=== PATIENT | female | born 1990 | race Caucasian/White ===

== ENCOUNTER 2020-02-26 14:39 | Emergency (ER) | payer BC ==
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
[2020-02-26 15:40] VITALS: BP 170/101; PULSE 91; O2SAT 98
--- NOTE | 2020-02-26 16:16 | XRAY ---
Indication: . History of miscarriage. Two-dimensional transabdominal early OB ultrasound performed. Comparison: None There is a single viable intrauterine with heart rate 150 BPM. Composite mean gestational age is 15 weeks 0 days. Anterior placenta without abruption/previa. Impression: Single viable intrauterine measuring 15 weeks 0 days. Expected date of confinement is August 19, 2020. Nothing acute.
== END 2020-02-26 15:51 | disposition home or self-care (01) ==
LOC: ED 14:39
DX: O26.892 Other specified pregnancy related conditions, second trimester (principal); O99.342 Other mental disorders complicating pregnancy, second trimester; Z3A.14 14 weeks gestation of pregnancy; F41.9 Anxiety disorder, unspecified
CPT/HCPCS: 76801; 99283

== ENCOUNTER 2020-06-12 19:13 | Emergency (ER) | payer BC ==
[2020-06-12] MEDS ORDERED: Sodium Chloride 0.9% 1000 ML 1,000 ML IV SCH (19:30)
[2020-06-12 19:31] VITALS: O2SAT 98
[2020-06-12] MEDS ORDERED: Sodium Chloride 0.9% 1000 ML 1,000 ML ONE (19:41)
--- NOTE | 2020-06-12 19:53 | ERPHSYRPT ---
- History of Present Illness Time Seen by Provider: 06/12/20 19:40 Source: patient Exam Limitations: no limitations Physician History: This is a 30-year-old white female who is 29 weeks . She is a patient of Dr. Cruz has symptoms of headache and intermittent dizziness that began yesterday. She has not had any vomiting. She has been having intermittent cramping but is not different than usual. She has had no vaginal bleeding. She has no chest pain. She is not short of breath. She has no history of preeclampsia. She also has no history of hypertension. She has not had any visual changes or disturbances. Timing/Duration: yesterday Severity: mild Associated Symptoms: headaches Allergies/Adverse Reactions: Penicillins Allergy (Severe, Verified 06/12/20 20:06) Difficulty Breathing Home Medications: Vits W-Ca,Fe,FA(<1Mg) [] 1 tab PO DAILY 06/12/20 [History] Hx Tetanus, Diphtheria Vaccination/Date Given: No Hx Influenza Vaccination/Date Given: No Hx Pneumococcal Vaccination/Date Given: No Travel Risk - International Travel Have you traveled outside of the country in past 3 weeks: No - Coronavirus Screening Are you exhibiting any of the following symptoms?: No Close contact with a COVID-19 positive Pt in past 14-21 Days: No - Review of Systems Constitutional: No Symptoms Eyes: No Symptoms Ears, Nose, & Throat: No Symptoms Respiratory: No Symptoms Cardiac: No Symptoms Abdominal/Gastrointestinal: No Symptoms Genitourinary Symptoms: No Symptoms Musculoskeletal: No Symptoms Skin: No Symptoms Neurological: Dizziness, Headache Psychological: No Symptoms Endocrine: No Symptoms Hematologic/Lymphatic: No Symptoms Immunological/Allergic: No Symptoms All Other Systems: Reviewed and Negative - Past Medical History Pertinent Past Medical History: No Neurological History: No Pertinent History ENT History: No Pertinent History Cardiac History: No Pertinent History Respiratory History: No Pertinent History Endocrine Medical History: No Pertinent History Musculoskeletal History: No Pertinent History GI Medical History: No Pertinent History History: No Pertinent History Psycho-Social History: No Pertinent History Female Reproductive Disorders: No Pertinent History - Past Surgical History Past Surgical History: Yes Neuro Surgical History: No Pertinent History Cardiac: No Pertinent History Respiratory: No Pertinent History Gastrointestinal: No Pertinent History Genitourinary: No Pertinent History Musculoskeletal: No Pertinent History Female Surgical History: No Pertinent History - Social History Smoking Status: Current every day smoker How long have you smoked: 10 YRS. Exposure to second hand smoke: No Drug Use: none Patient Lives Alone: No - Nursing Vital Signs Nursing Vital Signs: Initial Vital Signs Temperature 98.2 F 06/12/20 19:26 Pulse Rate 108 H 06/12/20 19:26 Respiratory Rate 18 06/12/20 19:26 Blood Pressure 177/99 06/12/20 19:26 O2 Sat by Pulse Oximetry 98 06/12/20 19:26 Pain Scale Pain Intensity 10 - Physical Exam General Appearance: no apparent distress, alert, anxiety Eye Exam: PERRL/EOMI, eyes nml inspection Ears, Nose, Throat Exam: normal ENT inspection, moist mucous membranes Neck Exam: normal inspection, non-tender, supple, full range of motion Respiratory Exam: normal breath sounds, lungs clear, airway intact, No chest tenderness, No respiratory distress Cardiovascular Exam: tachycardia Gastrointestinal/Abdomen Exam: soft, normal bowel sounds, No tenderness Pelvic Exam: not done Rectal Exam: not done Back Exam: normal inspection, normal range of motion, No CVA tenderness, No vertebral tenderness Extremity Exam: normal inspection, normal range of motion, pelvis stable Lymphatic Exam: No adenopathy SpO2 Interpretation: normal SpO2: 98 O2 Delivery: Room Air - Course Nursing assessment & vital signs reviewed: Yes EKG Interpreted by Me: RATE (97), Sinus Rhythm, NORMAL AXIS, NORMAL INTERVALS, NORMAL QRS, NORMAL ST-T, Other (No acute ischemic changes on EKG) Ordered Tests: Active Orders 24 hr Category Date Time Status IV Insertion STAT Care 06/12/20 19:28 Active CBC W DIFF Stat Lab 06/12/20 19:55 Completed CMP Stat Lab 06/12/20 19:55 Completed Lactic Acid Stat Lab 06/12/20 19:50 Completed MAG [MAGNESIUM] Stat Lab 06/12/20 19:55 Completed Manual Differential NC Stat Lab 06/12/20 19:55 Completed POCT GLUCOSE Stat Lab 06/12/20 19:27 Completed UA W/RFX UR CULTURE Stat Lab 06/12/20 19:29 Completed Medication Summary Generic Name Dose Route Start Last Admin Trade Name Freq PRN Reason Stop Dose Admin Sodium Chloride 1,000 mls @ 50 mls/hr 06/12/20 19:30 06/12/20 19:42 Sodium Chloride 0.9% 1000 Ml IV 07/12/20 19:29 50 mls/hr .Q20H PANCHO Administration Lab/Rad Data: Laboratory Result Diagrams 06/12/20 19:55 06/12/20 19:55 Laboratory Results 06/12/20 06/12/20 06/12/20 Range/Units 19:55 19:55 19:55 WBC 15.0 H (4.0-10.5) K/mm3 RBC 3.51 L (4.1-5.4) M/mm3 Hgb 10.8 L (12.0-16.0) gm/dl Hct 33.6 L (35-47) % MCV 95.7 (78-100) fl MCH 30.8 (26-32) pg MCHC 32.1 (32-36) g/dl RDW 12.9 (11.5-14.0) % Plt Count 274 (150-450) K/mm3 MPV 10.3 (7.5-11.0) fl Sodium 130 L (137-145) mmol/L Potassium 3.7 (3.5-5.1) mmol/L Chloride 104 (98-107) mmol/L Carbon Dioxide 20 L (22-30) mmol/L Anion Gap 9.6 (5-15) MEQ/L BUN 4 L (7-17) mg/dL Creatinine 0.47 L (0.52-1.04) mg/dL Estimated GFR > 60.0 ML/MIN Glucose 81 (74-106) mg/dL POC Glucometer (74 to 106) mg/dL Lactic Acid (0.4-2.0) Calcium 9.5 (8.4-10.2) mg/dL Magnesium 1.6 (1.6-2.3) mg/dL Total Bilirubin 0.20 (0.2-1.3) mg/dL AST 16 (14-36) U/L ALT 9 (0-35) U/L Alkaline Phosphatase 102 (38-126) U/L Serum Total Protein 7.0 (6.3-8.2) g/dL Albumin 3.7 (3.5-5.0) g/dL Urine Color (YELLOW) Urine Appearance (CLEAR) Urine pH (5-6) Ur Specific [place] (1.005-1.025) Urine Protein (Negative) Urine Ketones (NEGATIVE) Urine Blood (0-5) Adria/ul Urine Nitrite (NEGATIVE) Urine Bilirubin (NEGATIVE) Urine Urobilinogen (0-1) mg/dL Ur Leukocyte Esterase (NEGATIVE) Urine WBC (Auto) (0-5) /HPF Urine RBC (Auto) (0-2) /HPF U Epithel Cells (Auto) (FEW) /HPF Urine Bacteria (Auto) (NEGATIVE) /HPF Urine Mucus (Auto) (NEGATIVE) /HPF Urine Culture Reflexed (NO) Urine Glucose (NEGATIVE) mg/dL 06/12/20 06/12/20 06/12/20 Range/Units 19:50 19:29 19:27 WBC (4.0-10.5) K/mm3 RBC (4.1-5.4) M/mm3 Hgb (12.0-16.0) gm/dl Hct (35-47) % MCV (78-100) fl MCH (26-32) pg MCHC (32-36) g/dl RDW (11.5-14.0) % Plt Count (150-450) K/mm3 MPV (7.5-11.0) fl Sodium (137-145) mmol/L Potassium (3.5-5.1) mmol/L Chloride (98-107) mmol/L Carbon Dioxide (22-30) mmol/L Anion Gap (5-15) MEQ/L BUN (7-17) mg/dL Creatinine (0.52-1.04) mg/dL Estimated GFR ML/MIN Glucose (74-106) mg/dL POC Glucometer 75 (74 to 106) mg/dL Lactic Acid 0.9 (0.4-2.0) Calcium (8.4-10.2) mg/dL Magnesium (1.6-2.3) mg/dL Total Bilirubin (0.2-1.3) mg/dL AST (14-36) U/L ALT (0-35) U/L Alkaline Phosphatase (38-126) U/L Serum Total Protein (6.3-8.2) g/dL Albumin (3.5-5.0) g/dL Urine Color YELLOW (YELLOW) Urine Appearance CLEAR (CLEAR) Urine pH 6.0 (5-6) Ur Specific [place] 1.015 (1.005-1.025) Urine Protein NEGATIVE (Negative) Urine Ketones TRACE (NEGATIVE) Urine Blood NEGATIVE (0-5) Adria/ul Urine Nitrite NEGATIVE (NEGATIVE) Urine Bilirubin NEGATIVE (NEGATIVE) Urine Urobilinogen NEGATIVE (0-1) mg/dL Ur Leukocyte Esterase NEGATIVE (NEGATIVE) Urine WBC (Auto) 0-2 (0-5) /HPF Urine RBC (Auto) NONE (0-2) /HPF U Epithel Cells (Auto) RARE (FEW) /HPF Urine Bacteria (Auto) NONE (NEGATIVE) /HPF Urine Mucus (Auto) SLIGHT (NEGATIVE) /HPF Urine Culture Reflexed NO (NO) Urine Glucose NEGATIVE (NEGATIVE) mg/dL - Progress Progress: improved, pain not gone completely Progress Note: 06/12/20 20:29 Medical decision making: I spoke with the patient's senior training and development rep. I reviewed the patient's history, condition, laboratory results and reviewed the vital signs with him. He states the patient can be discharged home but to return to the hospital on 06/14/2020 to the labor and delivery department for blood pressure evaluation and nonstress test. If the patient has worsening headache symptoms or blood pressure is high, she is to report to the labor and delivery department sooner then Monday06/14/2020. No other recommendations at this time. Discussed with : Clarence Counseled pt/family regarding: lab results, need for follow-up - Departure Departure Disposition: Home Clinical Impression: Headache, Mild hypertension Condition: Stable Critical Care Time: No Referrals: TRISTON GARCIA [Primary Care Provider] - Additional Instructions: Drink plenty of fluids. Use Tylenol for headache relief. Return to the hospital labor and delivery department on Sunday, June 14, 2020 for blood pressure check and nonstress test. Return to the hospital (labor and delivery department) sooner if they headache persists or worsens and you notice your blood pressure continues to be increasing.
[2020-06-12 19:57] LABS: Hematocrit 33.6 % (35-47); Hemoglobin 10.8 gm/dl (12.0-16.0); Mean Cell Volume 95.7 fl (78-100); Mean Corpuscular Hemoglobin 30.8 pg (26-32); Mean Corpuscular Hgb Concent. 32.1 g/dl (32-36); Mean Platelet Volume 10.3 fl (7.5-11.0); Platelet Count 274 K/mm3 (150-450); Red Blood Count 3.51 M/mm3 (4.1-5.4); Red Cell Distribution Width 12.9 % (11.5-14.0)
[2020-06-12 20:11] LABS: ALBUMIN 3.7 g/dL (3.5-5.0); ALKALINE PHOSPHATASE 102 U/L (38-126); ANION GAP 9.6 MEQ/L (5-15); BLOOD UREA NITROGEN 4 mg/dL (7-17); CHLORIDE 104 mmol/L (98-107); Calcium 9.5 mg/dL (8.4-10.2); Carbon Dioxide 20 mmol/L (22-30); Creatinine 1 0.47 mg/dL (0.52-1.04); EST GLOMERULAR FILTRATION RATE > 60.0 ML/MIN; Glucose 81 mg/dL (74-106); Potassium 3.7 mmol/L (3.5-5.1); SGOT/AST 16 U/L (14-36); SGPT/ALT 9 U/L (0-35); SODIUM 130 mmol/L (137-145)
[2020-06-12 20:14] LABS: Appearance CLEAR (CLEAR); Bilirubin NEGATIVE (NEGATIVE); Blood NEGATIVE Ery/ul (0-5); Epithelial Cells RARE /HPF (FEW); Glucose NEGATIVE (NEGATIVE); Ketones TRACE (NEGATIVE); Leukocyte Esterase NEGATIVE (NEGATIVE); Mucus SLIGHT /HPF (NEGATIVE); Nitrite NEGATIVE (NEGATIVE); Protein,Urine Dip NEGATIVE (Negative); Specific Gravity 1.015 (1.005-1.025); Urobilinogen NEGATIVE mg/dL (0-1); WBC 0-2 /HPF (0-5)
[2020-06-12] MEDS ORDERED: TYLENOL 325 MG PO STA (21:13)
[2020-06-12 21:14] VITALS: PULSE 93
[2020-06-12] MEDS ORDERED: TYLENOL 325 MG ONE (21:15)
[2020-06-12 21:43] VITALS: BP 141/90
[2020-06-12 22:33] LABS: BAND 1 % (0.0-2.0); Eosinophil 1 % (0.00-3.0); Lymphocytes 15 % (24-44); Monocyte 5 % (0.0-12.0); Neutrophils 78 % (36.0-66.0); Platelet Estimate NORMAL (NORMAL); Total Cells Counted 100
== END 2020-06-12 21:12 | disposition home or self-care (01) ==
LOC: ED 19:13
DX: R51.9 Headache, unspecified (principal); I10 Essential (primary) hypertension; Z33.1 Pregnant state, incidental
CPT/HCPCS: 36000; 36415; 80053; 81001; 82947; 83605; 83735; 85025; 96360; 99284; A9270-GY

== ENCOUNTER 2020-06-14 12:51 | Observation (INO) | payer BC ==
[2020-06-14 14:50] LABS: Absolute Neutrophil Ct (ANC) 8.39 (1.4-6.9); BASOPHIL % 0.3 % (0.0-0.4); Basophil (Absolute #) 0.03 (0-0.4); Eosinophil % 0.7 % (0.00-5.0); Eosinophil (Absolute #) 0.08 (0-0.5); Hematocrit 32.9 % (35-47); Hemoglobin 10.4 gm/dl (12.0-16.0); Lymphocyte (Absolute #) 2.13 (1.0-4.6); Lymphocytes % 18.6 % (24.0-44.0); Mean Cell Volume 95.4 fl (78-100); Mean Corpuscular Hemoglobin 30.1 pg (26-32); Mean Corpuscular Hgb Concent. 31.6 g/dl (32-36); Mean Platelet Volume 10.7 fl (7.5-11.0); Neutrophil % 73.4 % (36.0-66.0); Platelet Count 272 K/mm3 (150-450); Red Blood Count 3.45 M/mm3 (4.1-5.4); White Blood Count 11.4 K/mm3 (4.0-10.5)
[2020-06-14 15:00] LABS: ALBUMIN 3.6 g/dL (3.5-5.0); ALKALINE PHOSPHATASE 100 U/L (38-126); ANION GAP 9.3 MEQ/L (5-15); BLOOD UREA NITROGEN 8 mg/dL (7-17); CHLORIDE 105 mmol/L (98-107); Calcium 9.3 mg/dL (8.4-10.2); Carbon Dioxide 21 mmol/L (22-30); Creatinine 1 0.46 mg/dL (0.52-1.04); EST GLOMERULAR FILTRATION RATE > 60.0 ML/MIN; Glucose 84 mg/dL (74-106); Potassium 4.1 mmol/L (3.5-5.1); SGOT/AST 16 U/L (14-36); SGPT/ALT 8 U/L (0-35); SODIUM 131 mmol/L (137-145); Total Protein 6.9 g/dL (6.3-8.2); Uric Acid 2.6 mg/dL (2.6-6.0)
[2020-06-14 15:54] LABS: Appearance CLEAR (CLEAR); Bilirubin NEGATIVE (NEGATIVE); Blood NEGATIVE Ery/ul (0-5); Epithelial Cells RARE /HPF (FEW); Glucose NEGATIVE (NEGATIVE); Ketones NEGATIVE (NEGATIVE); Leukocyte Esterase NEGATIVE (NEGATIVE); Mucus SLIGHT /HPF (NEGATIVE); Nitrite NEGATIVE (NEGATIVE); Protein,Urine Dip NEGATIVE (Negative); Specific Gravity 1.011 (1.005-1.025); Urobilinogen NEGATIVE mg/dL (0-1)
[2020-06-14 16:55] VITALS: BP 126/81; PULSE 78; O2SAT 98
== END 2020-06-14 16:09 | disposition home or self-care (01) ==
LOC: OB 12:51 → UNDOADMOB 12:51 → OB 13:01
PROVIDERS: ADMIT Obstetrics & Gynecology; ATTEND Obstetrics & Gynecology
DX: Z34.83 Encounter for supervision of other normal pregnancy, third trimester (principal); Z3A.30 30 weeks gestation of pregnancy
CPT/HCPCS: 36415; 59025; 80053; 81001; 82570; 84156; 84550; 85025; G0378

== ENCOUNTER 2020-07-09 17:54 | Observation (INO) | payer BC ==
[2020-07-09 18:52] LABS: Appearance SLIGHTLY CLOUDY (CLEAR); Bilirubin NEGATIVE (NEGATIVE); Blood NEGATIVE Ery/ul (0-5); Epithelial Cells RARE /HPF (FEW); Glucose NEGATIVE (NEGATIVE); Hyaline Casts 0-2 /LPF (0-2); Ketones NEGATIVE (NEGATIVE); Leukocyte Esterase TRACE (NEGATIVE); Mucus SLIGHT /HPF (NEGATIVE); Nitrite NEGATIVE (NEGATIVE); Protein,Urine Dip 100 (Negative); Specific Gravity 1.028 (1.005-1.025); Urobilinogen 2 mg/dL (0-1)
[2020-07-09 19:03] LABS: Amphetamine,Urine NEGATIVE (NEGATIVE); Barbiturate,Urine NEGATIVE (NEGATIVE); Benzodiazepine,Urine NEGATIVE (NEGATIVE); Cocaine,Urine NEGATIVE (NEGATIVE); Methadone,Urine NEGATIVE (NEGATIVE); Opiate,Urine NEGATIVE (NEGATIVE); PCP,Urine NEGATIVE (NEGATIVE); THC,Urine NEGATIVE (NEGATIVE)
[2020-07-09 19:10] LABS: Absolute Neutrophil Ct (ANC) 7.35 (1.4-6.9); BASOPHIL % 0.3 % (0.0-0.4); Basophil (Absolute #) 0.03 (0-0.4); Eosinophil % 0.9 % (0.00-5.0); Hematocrit 31.8 % (35-47); Hemoglobin 10.4 gm/dl (12.0-16.0); Lymphocyte (Absolute #) 2.19 (1.0-4.6); Lymphocytes % 20.8 % (24.0-44.0); Mean Corpuscular Hemoglobin 30.4 pg (26-32); Mean Corpuscular Hgb Concent. 32.7 g/dl (32-36); Mean Platelet Volume 10.7 fl (7.5-11.0); Monocyte (Absolute #) 0.88 (0.0-1.3); Monocytes % 8.3 % (0.0-12.0); Neutrophil % 69.7 % (36.0-66.0); Platelet Count 267 K/mm3 (150-450); Red Blood Count 3.42 M/mm3 (4.1-5.4); Red Cell Distribution Width 12.6 % (11.5-14.0); White Blood Count 10.6 K/mm3 (4.0-10.5)
[2020-07-09 19:11] LABS: Creatinine, Urine Random 228.1 mg/dl
[2020-07-09 19:12] LABS: RBC NONE SEEN /HPF (0-2)
[2020-07-09 19:21] LABS: ALBUMIN 3.5 g/dL (3.5-5.0); ALKALINE PHOSPHATASE 136 U/L (38-126); ANION GAP 12.5 MEQ/L (5-15); BLOOD UREA NITROGEN 4 mg/dL (7-17); CHLORIDE 107 mmol/L (98-107); Calcium 8.8 mg/dL (8.4-10.2); Carbon Dioxide 19 mmol/L (22-30); Creatinine 1 0.41 mg/dL (0.52-1.04); EST GLOMERULAR FILTRATION RATE > 60.0 ML/MIN; Glucose 87 mg/dL (74-106); Potassium 3.8 mmol/L (3.5-5.1); SGOT/AST 17 U/L (14-36); SGPT/ALT 10 U/L (0-35); SODIUM 135 mmol/L (137-145); Total Protein 6.7 g/dL (6.3-8.2)
[2020-07-09] MEDS ORDERED: Lactated Ringers 1,000 ML IV SCH (20:00)
[2020-07-09] MEDS ORDERED: Lactated Ringers 1,000 ML IV ONE (20:30)
[2020-07-09] MEDS: Lactated Ringers 1,000 ML IV SCH (22:00)
[2020-07-10] MEDS ORDERED: Lactated Ringers 1,000 ML IV SCH (02:03)
[2020-07-10 06:21] VITALS: O2SAT 97
[2020-07-10] MEDS ORDERED: TYLENOL 325 MG PO PRN (08:09)
[2020-07-10] MEDS ORDERED: Celestone Soluspan 6MG/ML IM ONE (08:13)
[2020-07-10] MEDS ORDERED: Magnesium Sulfate 40 Gm/1000 Ml H2O Premix*** 1,000 ML IV SCH (08:30)
--- NOTE | 2020-07-10 08:45 | XRAY ---
Indication: Right leg pain and swelling. Two-dimensional sonogram and color Doppler imaging of the major venous vessels of the right leg was performed. Comparison: None No thrombus seen in the examined deep venous vessels of the right leg including greater saphenous vein. Veins demonstrate normal compressibility. Venous waveforms are normal with and without augmentation. Impression: Right leg negative for DVT. Comment: Preliminary report was given.
[2020-07-10] MEDS: Lactated Ringers 1,000 ML IV SCH (09:04)
[2020-07-10] MEDS ORDERED: TRANDATE 20 MG/4 ML SYRINGE IV ONE (09:30)
[2020-07-10 10:40] VITALS: BP 128/60; PULSE 89
== END 2020-07-10 10:25 ==
LOC: OB 17:54
PROVIDERS: ADMIT Obstetrics & Gynecology; ATTEND Obstetrics & Gynecology
DX: O12.13 Gestational proteinuria, third trimester (principal); Z3A.33 33 weeks gestation of pregnancy
CPT/HCPCS: 36415; 80053; 80307; 81001; 82570; 84156; 85025; 87086; 93971; 96372; G0378; J0702; A9270-GY

== ENCOUNTER 2020-07-24 12:13 | Observation (INO) | payer BC ==
[2020-07-24 14:10] VITALS: BP 135/75; PULSE 85
== END 2020-07-24 13:40 | disposition home or self-care (01) ==
LOC: OB 12:13
PROVIDERS: ADMIT Obstetrics & Gynecology; ATTEND Obstetrics & Gynecology
DX: Z34.83 Encounter for supervision of other normal pregnancy, third trimester (principal)
CPT/HCPCS: 59025; G0378

== ENCOUNTER 2020-07-31 09:33 | Observation (INO) | payer BC ==
[2020-07-31 10:31] VITALS: BP 134/74; PULSE 91
== END 2020-07-31 11:00 | disposition home or self-care (01) ==
LOC: WHC 09:33 → OB 09:55
PROVIDERS: ADMIT Obstetrics & Gynecology; ATTEND Obstetrics & Gynecology
DX: Z34.83 Encounter for supervision of other normal pregnancy, third trimester (principal); Z3A.38 38 weeks gestation of pregnancy
CPT/HCPCS: 59025; 59426; G0378; 81002

== ENCOUNTER 2022-09-28 10:29 | Day surgery (SDC) | payer OTHER ==
[2012-02-19 17:04] VITALS: BP 109/67
[2022-09-28] MEDS ORDERED: Decadron 4 MG INJ IV ONE (10:30)
[2022-09-28] MEDS ORDERED: LIDOCAINE HCL 1% 50 MG/5 ML VL PF IJ ONE (10:30)
[2022-09-28 11:15] LABS: HCG URINE TEST NEGATIVE (NEGATIVE)
[2022-09-28] MEDS ORDERED: DIPRIVAN 200 MG/20 ML IV ONE (12:31)
[2022-09-28] MEDS ORDERED: Xylocaine-Mpf 2% 5 Ml Vial ONE (12:33)
[2022-09-28] MEDS ORDERED: Lactated Ringers 1,000 ML IV ONE (15:05)
--- NOTE | 2022-09-28 19:18 | XRAY ---
Indication: Bilateral piriformis injection. Intraoperative fluoroscopy provided for 26 seconds. 3 digital spot image submitted for interpretation demonstrates posterior needle tip projecting over the left and right piriformis. Small amount of contrast injected for needle tip placement. Correlate with intraoperative findings/report.
--- NOTE | 2022-09-28 19:25 | XRAY ---
26 seconds of fluoroscopy was used in surgery for a bilateral piriformis injection.
== END 2022-09-28 13:00 | disposition home or self-care (01) ==
LOC: SDC-PAIN 10:29
PROVIDERS: ATTEND Psychiatry & Neurology Pain Medicine
DX: M79.18 Myalgia, other site (principal); Z79.899 Other long term (current) drug therapy
CPT/HCPCS: 20552; 72170; 77002; 81025; J1100; J2001; J2704; Q9966

== ENCOUNTER 2022-11-17 08:53 | Day surgery (SDC) | payer OTHER ==
[2012-02-19 17:04] VITALS: BP 109/67
[2022-11-17] MEDS ORDERED: Sodium Chloride 0.9(Preservative Free) 10 ML IJ ONE (08:54)
[2022-11-17] MEDS ORDERED: Depo-Medrol 40 MG/ML IM ONE (08:54)
[2022-11-17] MEDS ORDERED: LIDOCAINE HCL 1% 50 MG/5 ML VL PF IJ ONE (08:54)
[2022-11-17] MEDS ORDERED: Decadron 4 MG INJ IV ONE (08:54)
[2022-11-17 09:50] LABS: HCG URINE TEST NEGATIVE (NEGATIVE)
[2022-11-17] MEDS ORDERED: DIPRIVAN 200 MG/20 ML IV ONE ×2 (10:43→10:54)
[2022-11-17] MEDS ORDERED: Lactated Ringers 1,000 ML IV ONE (11:43)
--- NOTE | 2022-11-17 13:17 | XRAY ---
Indication: Lumbar CARMELITA. Intraoperative fluoroscopy provided for 20 seconds. 2 digital spot image submitted for interpretation demonstrates posterior needle tip projecting posterior to lumbosacral junction. Small amount of contrast injected for needle tip placement. Correlate with intraoperative findings/report.
--- NOTE | 2022-11-17 13:19 | XRAY ---
Indication: Bilateral piriformis injection. Intraoperative fluoroscopy provided for 17 seconds. 2 digital spot image submitted for interpretation demonstrates posterior needle tip projecting over expected left and right piriformis. Small amount of contrast injected for needle tip placement. Correlate with intraoperative findings/report.
--- NOTE | 2022-11-17 13:50 | XRAY ---
20 seconds of fluoroscopy was used in surgery for a lumbar CARMELITA.
--- NOTE | 2022-11-17 13:50 | XRAY ---
17 seconds of fluoroscopy was used in surgery for a bilateral piriformis injection.
== END 2022-11-17 11:25 | disposition home or self-care (01) ==
LOC: SDC-PAIN 08:53
PROVIDERS: ATTEND Psychiatry & Neurology Pain Medicine
DX: M54.16 Radiculopathy, lumbar region (principal); M79.18 Myalgia, other site
CPT/HCPCS: 20552; 62321; 72100; 72170; 77002; 77003; 81025; J1030; J1100; J2001; J2704; Q9966

== ENCOUNTER 2024-05-16 14:11 | Day surgery (SDC) | payer OTHER ==
[2012-02-19 17:04] VITALS: BP 109/67
[2024-05-16] MEDS ORDERED: Depo-Medrol 40 MG/ML IM ONE (14:12)
[2024-05-16] MEDS ORDERED: LIDOCAINE HCL 1% AMPUL 5 ML IJ ONE (14:12)
[2024-05-16] MEDS ORDERED: dexAMETHasone sodium phosphate IJ ONE (14:12)
[2024-05-16] MEDS ORDERED: Sodium Chloride 0.9(Preservative Free) 10 ML IJ ONE (14:12)
[2024-05-16 14:22] LABS: HCG URINE TEST NEGATIVE (NEGATIVE)
[2024-05-16] MEDS ORDERED: propofoL IV ONE ×2 (14:56→15:06)
--- NOTE | 2024-05-16 16:32 | XRAY ---
Indication: Lumbar CARMELITA. Intraoperative fluoroscopy provided for 16 seconds. 2 digital spot image submitted for interpretation demonstrates posterior needle tip projecting posterior to lumbosacral junction. Small amount of contrast injected for needle tip placement. Correlate with intraoperative findings/report.
--- NOTE | 2024-05-16 16:35 | XRAY ---
Indication: Bilateral piriformis injection. Intraoperative fluoroscopy provided for 12 seconds. 2 digital spot image submitted for interpretation demonstrates posterior needle tips projecting over left and right piriformis. Small amount of contrast injected for needle tip placement. Correlate with intraoperative findings/report.
--- NOTE | 2024-05-17 09:23 | XRAY ---
16 seconds of fluoroscopy was used in surgery for a lumbar CARMELITA.
--- NOTE | 2024-05-17 09:24 | XRAY ---
12 seconds of fluoroscopy was used in surgery for a bilateral piriformis injection.
== END 2024-05-16 15:47 | disposition home or self-care (01) ==
LOC: SDC-PAIN 14:11
PROVIDERS: ATTEND Psychiatry & Neurology Pain Medicine
DX: M54.16 Radiculopathy, lumbar region (principal); M79.18 Myalgia, other site
CPT/HCPCS: 20552; 62323; 72100; 72170; 77002; 77003; 81025; J1100; J2704; Q9966